=== PATIENT | female | born 1980 | race Caucasian/White ===

== ENCOUNTER 2017-09-20 00:01 | Emergency (ER) | payer SELFPAY ==
[~2017-09-20] VITALS: Ht 152.4 cm; Wt 40.0 kg
[~2017-09-20 00:01] MED LIST: ALPR-138 PO; DOXY100T PO; HYDR10TA16 PO
[2017-09-20 00:02] VITALS: BP 94/40; PULSE 77; RESP 20; TEMP 98.7; O2SAT 98
[2017-09-20] MEDS ORDERED: LIDOCAINE 1%/EPINEPHrine 1:100,000 SOLN 50 ML VIAL ONE (00:22)
[2017-09-20] MEDS ORDERED: LIDOCAINE 1%/EPINEPHrine 1:100,000 SOLN 20 ML VIAL INFIL ONE (00:30)
[2017-09-20] MEDS ORDERED: CEPH-460 PO (00:39)
[2017-09-20] MEDS ORDERED: BACT800T5 PO (00:39)
--- NOTE | 2017-09-20 00:39 | PD ---
HPI Chief Complaint: Skin Problem Time Seen by Provider: 00:12 Travel History International Travel<30 days: No Contact w/Intl Traveler<30days: No Traveled to known affect area: No History of Present Illness HPI 37-year-old female here for evaluation of right axillary abscess. The patient first noticed a small pimple-like area about 4 days ago which has increased in size over the last 4 days. Pain is now severe, constant, worse with movements and outpatient. She denies fevers or chills. She does shave her armpits. She denies IVDU. PFS Past Medical History Diminished Hearing: No Kidney Stones: Yes Tetanus Vaccination: Unknown Influenza Vaccination: No ?: Not LMP: menpause : 5 Para: 1 Miscarriage: 2 : 2 Past Surgical History Surgical History: No Previous Surgery Body Medical Devices: BEEN TAKING TYLENOL 3 RECENTLY FOR MOLAR PAIN Social History Alcohol Use: Yes (OCCASIONAL) Tobacco Use: Yes (1/3 PACK A DAY) Substance Use: No Allergies-Medications (Allergen,Severity, Reaction): Coded Allergies: ciprofloxacin (Unverified Adverse Reaction, Mild, HALLUCINATION, 09/20/17) Reported Meds & Prescriptions Reported Meds & Active Scripts Active No Active Prescriptions or Reported Medications Review of Systems Except as stated in HPI: all other systems reviewed are Neg Physical Exam Narrative GENERAL: Well-developed, thin, comfortable, no apparent distress. SKIN: Right axilla with a large area of fluctuance with overlying warmth and erythema. HEAD: Atraumatic. Normocephalic. EYES: Pupils equal and round. No scleral icterus. No injection or drainage. ENT: No nasal bleeding or discharge. Mucous membranes pink and moist. NECK: Trachea midline. No JVD. CARDIOVASCULAR: Regular rate and rhythm. RESPIRATORY: No accessory muscle use. Clear to auscultation. Breath sounds equal bilaterally. MUSCULOSKELETAL: No obvious deformities. No clubbing. No cyanosis. No edema. NEUROLOGICAL: Awake and alert. No obvious cranial nerve deficits. Motor grossly within normal limits. Normal speech. PSYCHIATRIC: Appropriate mood and affect; insight and judgment normal. Data Data Last Documented VS Vital Signs Date Time Temp Pulse Resp B/P (MAP) Pulse Ox O2 Delivery O2 Flow Rate FiO2 09/20/17 00:02 98.7 77 20 94/40 (58) 98 Orders Orders Lidocai-Epi 1%-1:100,000 Inj (Xylocaine- (09/20/17 00:30) Wound Culture And Gram Stain (09/20/17 00:18) Lidocai-Epi 1%-1:100,000 Inj (Xylocaine- (09/20/17 00:22) Sulfamet-Trimeth Ds 800-160 Mg (Bactrim (09/20/17 00:45) Cephalexin (Keflex) (09/20/17 00:45) Oxycodone-Acetamin 10-325 Mg (Percocet 1 (09/20/17 00:45) MDM Medical Decision Making Medical Screen Exam Complete: Yes Emergency Medical Condition: Yes Differential Diagnosis Right axillary abscess, lymphadenopathy Narrative Course Right axillary abscess was incised and drained with a significant amount of purulent drainage. See procedure note. Wound was packed with 1 inch iodoform packing. Patient will be started on Bactrim and Keflex. She was informed to return to the emergency department in 48 hours for wound check. She was advised on when to return to the emergency Department sooner. She verbalizes understanding and agreement with plan. Procedures Procedure Narrative Incision and drainage of right axillary abscess: Abscess was prepped with ChloraPrep. 2 cc of 1% lidocaine with epinephrine was used for local anesthesia. 1.5 cm horizontal incision was made over highest area of fluctuance and a significant amount of foul-smelling purulent drainage was expressed. Sample sent for culture and sensitivity. Wound packed with 1 inch performed packing. No complications. Diagnosis Primary Impression: Abscess of right axilla Referrals: Primary Care Physician 3 days Additional Instructions: Return to the emergency department in 48 hours for a wound check. Return to the emergency Department sooner for worsening symptoms or any other concerns. Take antibody as prescribed. Scripts Cephalexin (Keflex) 500 Mg Cap 500 MG PO Q8H for Infection, #30 CAP 0 Refills Prov: Sal Alonzo MD 09/20/17 Sulfamethoxazole-Trimethoprim (Bactrim DS) 800-160 Mg Tab 1 TAB PO BID for Infection, #14 TAB 0 Refills Prov: Sal Alonzo MD 09/20/17 Disposition: 01 DISCHARGE HOME Condition: Stable Sal Alonzo MD Sep 20, 2017 00:39
[2017-09-20] MEDS ORDERED: CEPHALEXIN MONOHYDRATE 500 MG CAP PO ONE (00:45)
[2017-09-20] MEDS ORDERED: SULFAMETHOXAZOLE-TRIMETHOPRIM DS 800-160 MG TAB PO ONE (00:45)
[2017-09-20] MEDS ORDERED: oxyCODONE/ACETAMINOPHEN 10 MG/325 MG TAB PO ONE (00:45)
[2017-09-20] MEDS ORDERED: LIDOCAINE 1%/EPINEPHrine 1:100,000 SOLN 50 ML VIAL INFIL ONE (00:45)
== END 2017-09-20 00:55 | disposition home or self-care (01) ==
LOC: NEPE 00:01
DX: L02.411 Cutaneous abscess of right axilla (principal); B95.62 Methicillin resistant Staphylococcus aureus infection as the cause of diseases classified elsewhere
CPT/HCPCS: 10061; 86403; 87070; 87186